=== PATIENT | male | born 1960 | race Caucasian/White ===

== ENCOUNTER 2025-09-24 10:18 | Outpatient (CLI) | payer OTHER | END 2025-09-24 10:19 | disposition home or self-care (01) | LOC: SCSRAD 10:18 | PROVIDERS: ATTEND Nurse Practitioner Family | DX: S70.01XA Contusion of right hip, initial encounter (principal); R07.89 Other chest pain ==

== ENCOUNTER 2025-09-29 14:21 | Outpatient (CLI) | payer OTHER | END 2025-09-29 14:22 | disposition home or self-care (01) | LOC: SCSRAD 14:21 | PROVIDERS: ATTEND Nurse Practitioner Family | DX: M25.531 Pain in right wrist (principal); M11.231 Other chondrocalcinosis, right wrist ==